=== PATIENT | male | born 1990 | race African-American/Black ===

== ENCOUNTER 2017-03-31 11:05 | Emergency (ER) | payer OTHER ==
[~2017-03-31] VITALS: Ht 172.7 cm; Wt 70.3 kg
[2017-03-31 11:19] VITALS: BP 140/84
[2017-03-31 12:12] LABS: BASOPHILS % (AUTO) 0.7 % (0.0-2.0); EOSINOPHILS % (AUTO) 0.1 % (0.0-3.0); HEMATOCRIT 48.9 % (42.0-52.0); HEMOGLOBIN 16.4 G/DL (14.2-18.0); LYMPHOCYTES % (AUTO) 14.9 % (20.0-45.0); MEAN CORPUSCULAR VOLUME 92 FL (80-99); MONOCYTES % (AUTO) 6.5 % (1.0-10.0); NEUTROPHILS % (AUTO) 77.9 % (45.0-75.0); PLATELET COUNT 293 K/UL (150-450); RED BLOOD COUNT 5.29 M/UL (4.70-6.10); RED CELL DISTRIBUTION WIDTH 10.5 % (11.6-14.8); WHITE BLOOD COUNT 11.7 K/UL (4.8-10.8)
--- NOTE | 2017-03-31 12:16 | Emergency Room Report ---
History of Present Illness General Chief Complaint: Syncope Source: Patient Present Illness HPI The patient complains of abdominal pain and constipation. The patient states that he has been constipated for 3 days. He states that just prior to arrival he was bearing down on the toilet and fainted. He states that he has developed pain and distension in his abdomen. He states that he can feel the hard stool in his rectum. He denies recent illness. He denies f/c/s, n/v, cp, sob. He has no other complaints. Allergies: Coded Allergies: No Known Allergies (Unverified , 03/31/17) Patient History Past Medical History: none Social History: Denies: smoking, alcohol use, drug use Reviewed Nursing Documentation: PMH: Agreed, PSxH: Agreed Nursing Documentation-PMH Past Medical History: No Stated History Review of Systems All Other Systems: negative except mentioned in HPI Physical Exam Vital Signs Date Time Temp Pulse Resp B/P (MAP) Pulse Ox O2 Delivery O2 Flow Rate FiO2 03/31/17 11:04 98.8 120 16 138/94 98 Room Air Sp02 EP Interpretation: reviewed, normal General Appearance: no apparent distress, alert, GCS 15, non-toxic Head: normocephalic, atraumatic Eyes: bilateral eye normal inspection, bilateral eye PERRL ENT: hearing grossly normal, normal pharynx, no angioedema, normal voice Neck: full range of motion, supple/symm/no masses Respiratory: chest non-tender, lungs clear, normal breath sounds, no respiratory distress, no retraction, no accessory muscle use, speaking full sentences Cardiovascular #1: no edema, tachycardia Gastrointestinal: soft, no guarding, no rebound, distended, tenderness - Lower abdomen Rectal: deferred Musculoskeletal: back normal, gait/station normal, normal range of motion, non- tender, calf tenderness Neurologic: alert, oriented x3, responsive, motor strength/tone normal, sensory intact, speech normal Psychiatric: judgement/insight normal, memory normal, mood/affect normal, no suicidal/homicidal ideation Skin: normal color, no rash, warm/dry, well hydrated Medical Decision Making Diagnostic Impression: Primary Impression: Fecal impaction ER Course The patient has a fecal impaction. Initially he had urinary retention (seen on CT), but shortly after CT urinated over 1 L of urine and had significant relief of symptoms. He was given a fleet enema in the ED and but on a home bowel regimen. He was given diet instructions and close return precautions and f/u instructions. Laboratory Tests Test 03/31/17 11:55 03/31/17 13:20 White Blood Count 11.7 K/UL (4.8-10.8) H Red Blood Count 5.29 M/UL (4.70-6.10) Hemoglobin 16.4 G/DL (14.2-18.0) Hematocrit 48.9 % (42.0-52.0) Mean Corpuscular Volume 92 FL (80-99) Mean Corpuscular Hemoglobin 30.9 PG (27.0-31.0) Mean Corpuscular Hemoglobin Concent 33.5 G/DL (32.0-36.0) Red Cell Distribution Width 10.5 % (11.6-14.8) L Platelet Count 293 K/UL (150-450) Mean Platelet Volume 6.9 FL (6.5-10.1) Neutrophils (%) (Auto) 77.9 % (45.0-75.0) H Lymphocytes (%) (Auto) 14.9 % (20.0-45.0) L Monocytes (%) (Auto) 6.5 % (1.0-10.0) Eosinophils (%) (Auto) 0.1 % (0.0-3.0) Basophils (%) (Auto) 0.7 % (0.0-2.0) Sodium Level 140 MMOL/L (136-145) Potassium Level 3.7 MMOL/L (3.5-5.1) Chloride Level 102 MMOL/L (98-107) Carbon Dioxide Level 27 MMOL/L (21-32) Anion Gap 11 mmol/L (5-15) Blood Urea Nitrogen 8 mg/dL (7-18) Creatinine 1.3 MG/DL (0.55-1.30) Estimate Glomerular Filtration Rate > 60 mL/min (>60) Glucose Level 119 MG/DL (74-106) H Calcium Level 9.7 MG/DL (8.5-10.1) Total Bilirubin 0.8 MG/DL (0.2-1.0) Aspartate Amino Transferase (AST) 20 U/L (15-37) Alanine Aminotransferase (ALT) 25 U/L (12-78) Alkaline Phosphatase 97 U/L (46-116) Total Protein 7.9 G/DL (6.4-8.2) Albumin 4.3 G/DL (3.4-5.0) Globulin 3.6 g/dL Albumin/Globulin Ratio 1.2 (1.0-2.7) Lipase 118 U/L (73-393) Urine Color Pale yellow Urine Appearance Clear Urine pH 8 (4.5-8.0) Urine Specific [place] 1.015 (1.005-1.035) Urine Protein Negative (NEGATIVE) Urine Glucose (UA) Negative (NEGATIVE) Urine Ketones 2+ (NEGATIVE) H Urine Occult Blood Negative (NEGATIVE) Urine Nitrite Negative (NEGATIVE) Urine Bilirubin Negative (NEGATIVE) Urine Urobilinogen Normal MG/DL (0.0-1.0) Urine Leukocyte Esterase Negative (NEGATIVE) EKG Diagnostic Results Rate: tachycardiac Rhythm: other - S.tachycardia ST Segments: no acute changes Rhythm Strip Diag. Results EP Interpretation: yes Rate: 100's Rhythm: no PVC's, no ectopy, other - S.tachycardia CT/MRI/US Diagnostic Results CT/MRI/US Diagnostic Results : Imaging Test Ordered: CT abd/pelvis Impression Fecal impaction and proctitis. Distended urinary bladder. Cysts within the left kidney Last Vital Signs Date Time Temp Pulse Resp B/P (MAP) Pulse Ox O2 Delivery O2 Flow Rate FiO2 03/31/17 11:19 98.2 110 18 140/84 96 Room Air Disposition: HOME, SELF-CARE Condition: Improved Scripts Magnesium Citrate (MAGNESIUM CITRATE) 296 Ml Solution 150 ML PO DAILY, #296 ML Prov: KIERRA PITTMAN M.D. 03/31/17 Na Phos,M-B/Na Phos,Di-Ba (ENEMA [id number]) 133 Ml Enema 133 ML RC ONCE, #1 EA Prov: KIERRA PITTMAN M.D. 03/31/17 Docusate Sodium* (COLACE*) 100 Mg Capsule 100 MG ORAL THREE TIMES A DAY, #30 CAP Prov: KIERRA PITTMAN M.D. 03/31/17 RICHY BULLOCK D.O. Mar 31, 2017 12:16
[2017-03-31 12:23] LABS: ANION GAP 11 mmol/L (5-15); BLOOD UREA NITROGEN 8 mg/dL (7-18); CALCIUM 9.7 MG/DL (8.5-10.1); CARBON DIOXIDE 27 MMOL/L (21-32); CHLORIDE 102 MMOL/L (98-107); CREATININE 1.3 MG/DL (0.55-1.30); POTASSIUM 3.7 MMOL/L (3.5-5.1); SODIUM 140 MMOL/L (136-145)
[2017-03-31 12:28] LABS: ALANINE AMINOTRANSFERASE 25 U/L (12-78); ALBUMIN 4.3 G/DL (3.4-5.0); ALBUMIN/GLOBULIN RATIO 1.2 (1.0-2.7); ALKALINE PHOSPHATASE 97 U/L (46-116); ASPARTATE AMINO TRANSFERASE 20 U/L (15-37); BILIRUBIN,TOTAL 0.8 MG/DL (0.2-1.0)
[2017-03-31] MEDS ORDERED: Morphine Sulfate 4mg/ml Inj IVP ONE (12:30)
[2017-03-31 13:24] VITALS: BP 126/68
--- NOTE | 2017-03-31 13:41 | Diagnostic Imaging Report ---
Indication: Abdominal pain Technique: Continuous helical transaxial imaging of the abdomen and pelvis was obtained from the lung bases to the pubic symphysis during intravenous contrast administration. Coronal 2-D reformats were also obtained. Study obtained in a Siemens sensation [address] Automatic Exposure Control was utilized. Total Dose length Product (DLP): 641.[address] Dose Index Volume (CTDIvol): 11.66 mGy Comparison: None Findings: Lung bases are clear. There is moderate impaction of feces within the rectum which is distended. There is slight thickening of the rectal wall. The urinary bladder is also moderately distended. There is no hydronephrosis. There are left renal cysts present. No abnormalities of the pancreas, spleen, liver or adrenal glands are identified. Bowel gas pattern is normal. No free fluid identified. IMPRESSION: Fecal impaction and proctitis. Distended urinary bladder. Cysts within the left kidney The CT scanner at [facility] is accredited by the [employer] and the scans are performed using dose optimization techniques as appropriate to a performed exam including Automatic Exposure control.
[2017-03-31 14:12] LABS: APPEARANCE,URINE CLEAR; BILIRUBIN, URINE NEGATIVE (NEGATIVE); COLOR,URINE PALE YELLOW; GLUCOSE, URINE (UA) NEGATIVE (NEGATIVE); KETONES,URINE 2+ (NEGATIVE); LEUKOCYTE ESTERASE ,URINE NEGATIVE (NEGATIVE); NITRITE,URINE NEGATIVE (NEGATIVE); PH,URINE 8 (4.5-8.0); PROTEIN,URINE NEGATIVE (NEGATIVE); UROBILINOGEN,URINE NORMAL MG/DL (0.0-1.0)
[2017-03-31] MEDS ORDERED: Fleet's Enema 133ml RECTAL ONE (17:00)
[2017-03-31 18:34] VITALS: BP 122/80
[2017-03-31] MEDS ORDERED: MAGNESIUM CITR296 M1 PO (18:35)
[2017-03-31] MEDS ORDERED: COLACE100 MG ORAL (18:35)
[2017-03-31] MEDS ORDERED: ENEMA READY-TO133 ML RC (18:35)
--- NOTE | 2017-04-01 13:24 | Cardiology Report ---
APPROVED REPORT EKG Measurement Heart [id number] Sinus tachycardia Possible Lateral infarct, age undetermined Abnormal ECG
== END 2017-03-31 18:34 | disposition home or self-care (01) ==
LOC: EDBD 11:05 → EMR 11:35
DX: K56.41 Fecal impaction (principal); R55 Syncope and collapse; N28.1 Cyst of kidney, acquired
CPT/HCPCS: 36415; 74177; 80053; 81003; 83690; 85025; 93005; 96374; 96375; 99284; J2270; J2405; Q9967

== ENCOUNTER 2018-09-04 15:31 | Emergency (ER) | payer OTHER ==
[~2018-09-04] VITALS: Ht 175.3 cm; Wt 74.8 kg
[~2018-09-04 15:31] MED LIST: COLACE100 MG ORAL; ENEMA READY-TO133 ML RC; MAGNESIUM CITR296 M1 PO
[2018-09-04] MEDS ORDERED: NKM (15:40)
--- NOTE | 2018-09-04 15:45 | NUR ---
ED Nurse Note: PT WALKED IN TO ER TODAY FROM HOME. AOX4. PT C/O SORE THROAT, PAIN 7/10, RADIATING TO RIGHT EAR X 3 DAYS AGO. PT DENIES COUGH OR FEVER. LUNG SOUNDS CLEAR IN ALL LOBES.
[2018-09-04 15:46] VITALS: BP 128/86
--- NOTE | 2018-09-04 15:47 | Emergency Room Report ---
History of Present Illness General Chief Complaint: Sore Throat Source: Patient Present Illness HPI 28-year-old male with no significant past medical history here complaining of 3 days of sore throat rating the pain 5 out of 10 with swallowing without radiation. Denies fever and chills, congestion, cough, nausea vomiting, abdominal pain. Patient has taken some [id number] ibuprofen with minimal relief. Denies shortness of breath, palpitation, chest pain, and all other associated symptoms Allergies: Coded Allergies: No Known Allergies (Unverified , 03/31/17) Patient History Past Medical History: see triage record Past Surgical History: unable to obtain Pertinent Family History: none Reviewed Nursing Documentation: PMH: Agreed; PSxH: Agreed Nursing Documentation-PMH Past Medical History: No Stated History Review of Systems All Other Systems: negative except mentioned in HPI Physical Exam Vital Signs Date Time Temp Pulse Resp B/P (MAP) Pulse Ox O2 Delivery O2 Flow Rate FiO2 09/04/18 15:37 98.2 83 17 139/93 (108) 98 Room Air Sp02 EP Interpretation: reviewed, normal General Appearance: normal inspection, well appearing, no apparent distress, alert Head: normocephalic, atraumatic Eyes: bilateral eye normal inspection, bilateral eye PERRL ENT: no angioedema, TMs + canals normal, uvula midline, pharyngeal erythema, tonsillar exudate Neck: full range of motion, other - Anterior cervical lymphadenopathy Respiratory: normal inspection, chest non-tender, lungs clear, no respiratory distress, no wheezing Cardiovascular #1: normal inspection, regular rate, rhythm, no edema, no gallop , no murmur Gastrointestinal: normal inspection, non tender, soft Musculoskeletal: normal inspection, digits/nails normal Neurologic: normal inspection, alert, oriented x3 Psychiatric: normal inspection, judgement/insight normal, memory normal Skin: normal inspection, normal color, no rash, warm/dry Lymphatic: adenopathy - Anterior cervical Medical Decision Making PA Attestation All my diagnosis and treatment plans were reviewed ad discussed with my supervising physician Dr. Jade Diagnostic Impression: Primary Impression: Strep pharyngitis ER Course 28-year-old male with no significant past medical history here complaining of 3 days of sore throat rating the pain 5 out of 10 with swallowing without radiation. Denies fever and chills, congestion, cough, nausea vomiting, abdominal pain. Patient has taken some [id number] ibuprofen with minimal relief. Denies shortness of breath, palpitation, chest pain, and all other associated symptoms Ddx considered but are not limited to: strep pharyngitis, URI, tonsilitis, peritonsillar absacess, influneza Vital signs: are WNL, pt. is afebrile H&PE are most consistent with: Strep pharyngitis ORDERS: Amoxicillin ED INTERVENTIONS: None required at this time. DISCHARGE: At this time pt. is stable for d/c to home. Will provide printed patient care instructions, and any necessary prescriptions. Care plan and follow up instructions have been discussed with the patient prior to discharge. Last Vital Signs Date Time Temp Pulse Resp B/P (MAP) Pulse Ox O2 Delivery O2 Flow Rate FiO2 09/04/18 15:37 98.2 83 17 139/93 (108) 98 Room Air Disposition: HOME, SELF-CARE Condition: Stable Scripts Amoxicillin* (AMOXIL*) 500 Mg Capsule 500 MG ORAL EVERY 12 HOURS for 10 Days, #20 CAP Prov: Ajit Coelho 09/04/18 Patient Instructions: Strep Throat Additional Instructions: Take medication as directed follow-up with your primary care provider avoid spicy and sweet food Ajit Coelho Sep 04, 2018 15:47
[2018-09-04] MEDS ORDERED: AMOXICILLIN500 MG ORAL (15:48)
--- NOTE | 2018-09-04 15:49 | NUR ---
ED Nurse Note: PT SITTING PEACEFULLY IN CHAIR IN NAD. AOX4. PRESCRIPTIONS AND DISCHARGE PAPERWORK EXPLAINED TO PT. PT VERBALIZES UNDERSTANDING AND ALL QUESTIONS ANSWERED. PRESCRIPTIONS AND DISCHARGE PAPERWORK GIVEN TO PT AND ID WRISTBAND REMOVED. PT WALKED OUT OF ER WITH STEADY GAIT AND ALL BELONGINGS.
[2018-09-04 15:50] VITALS: BP 126/86
== END 2018-09-04 15:52 | disposition home or self-care (01) ==
LOC: EMR 15:45
DX: J02.0 Streptococcal pharyngitis (principal)
CPT/HCPCS: 99282